=== PATIENT | female | born 1970 | race African-American/Black ===

== ENCOUNTER 2024-08-08 20:05 | Emergency (ER) | payer BC ==
[2024-08-08] MEDS ORDERED: levETIRAcetam 500 MG (5 mL) VIAL ONE (20:35)
[2024-08-08 21:21] LABS: Bilirubin Neg (Negative); Blood, Urine 150 (Negative); Clarity Cloudy (Clear); Glucose, Urine (Dipstick) Normal (Negative); Ketone, Urine Negative (Negative); Leukocyte 500 (Negative); Nitrite Positive (Negative); Protein, Urine (Dipstick) 100 mg/dl (Neg-Trace); Urobilinogen Normal mg/dL (Less than 2)
[2024-08-08 21:35] LABS: CAUTI Indications for Culture Fever or rigors; WBC/HPF Greater than 50 HPF (0-3)
[2024-08-08 21:36] LABS: Squamous Epithelial 0-3 HPF (0-3); Transitional Epithelial 0-3 HPF (None Seen)
[2024-08-08 21:39] LABS: Bacteria/HPF 3+ HPF (None Seen)
[2024-08-08 21:40] LABS: Mucous/LPF 1+ LPF (<2+)
[2024-08-08 21:43] LABS: Urine Culture Reflex Yes Yes
[2024-08-08 21:56] LABS: #Basophils Less than 0.03 10x3/uL (0.0-0.2); #Eosinophils 0.05 10x3/uL (0.0-0.5); #Monocytes 0.42 10x3/uL (0.0-1.1); #Neutrophils 3.99 10x3/uL (1.5-8.4); %Basophils 0.3 % (0.0-2.0); %Eosinophils 0.8 % (0.0-6.0); %Lymphocytes 30.1 % (18.0-47.0); %Monocytes 6.5 % (0.0-10.0); %Neutrophils 62.1 % (40.0-75.0); Hematocrit 37.9 % (34.9-44.5); Hemoglobin 11.4 g/dL (12.0-15.5); Mean Corpuscular HGB CONC 30.1 g/dL (32.0-36.0); Mean Corpuscular Hemoglobin 24.1 pg (27.0-33.0); Mean Platelet Volume 11.8 fL (7.4-10.4); Platelet Count 202 10x3/uL (150-450); RBC Distribution Width 15.7 % (11.5-14.5); Red Blood Cell (RBC) Count 4.74 10x6/uL (3.90-5.03); White Blood Cell (WBC) Count 6.42 10x3/uL (3.5-10.5)
[2024-08-08 22:18] LABS: ALT (SGPT) Less than 7 U/L (Less than 34); AST (SGOT) 13 U/L (11-34); Alkaline Phosphatase 73 U/L (40-110); Anion Gap 18 mmol/L (10-20); BUN (Urea Nitrogen) 11 mg/dL (9.8-20.1); Bilirubin, Total 0.7 mg/dL (0.3-1.2); Calc. Creatinine Clearance 0 mL/min (70-130); Calcium 9.7 mg/dL (7.8-10.44); Carbon Dioxide 25 mmol/L (22-29); Chloride 105 mmol/L (98-107); Estimated GFR 98; Globulin 4.7 g/dL (2.4-3.5); Glucose 122 mg/dL (70-105); Potassium 3.6 mmol/L (3.5-5.1); Protein, Total 8.7 g/dL (6.0-8.3); Sodium 144 mmol/L (136-145)
[2024-08-08] MEDS ORDERED: cefTRIAXone (ROCEPHIN) 1 GM VIAL ONE (22:22)
[2024-08-08 22:25] LABS: Troponin I Less than 0.010 ng/mL (< 0.028)
== END 2024-08-08 22:45 | disposition home or self-care (01) ==
LOC: CSHERS 20:05
DX: N39.0 Urinary tract infection, site not specified (principal); R55 Syncope and collapse; E11.9 Type 2 diabetes mellitus without complications; I10 Essential (primary) hypertension
CPT/HCPCS: 36415; 70450; 80053; 81001; 84484; 85025; 87077; 87086; 93005; 96374; 96375; J0696; J1953